=== PATIENT | female | born 1980 | race African-American/Black ===

== ENCOUNTER 2016-10-15 10:15 | Observation (INO) | payer MEDICAID ==
--- NOTE | 2016-10-15 10:32 | ER Document Report ---
ED Medical Screen (RME) - General Stated Complaint: PAINFUL KNOT ON RIGHT NIPPLE Time seen by provider: 10:30 Mode of Arrival: Ambulatory Information source: Patient Notes: 36-year-old female complaining of a painful swelling in the right area left. Last week she could squeeze some pus out of her nipple and now she can't get any out and it's larger and more painful. No history of breast cancer or MRSA I have greeted and performed a rapid initial assessment of this patient. A comprehensive ED assessment, evaluation of the patient, analysis of test results , and completion of the medical decision making process will be contacted by additional ED providers. TRAVEL OUTSIDE OF THE [place] IN LAST 30 DAYS: No - Related Data Allergies/Adverse Reactions: No Known Allergies Allergy (Verified 10/15/16 10:29) Past Medical History - Past Medical History Cardiac Medical History: Pulmonary Medical History: Neurological Medical History: GI Medical History: Musculoskeltal Medical History: Infectious Medical History: Past Surgical History: Reports: Hx Section Physical Exam - Vital signs Vitals: Temp Pulse Resp BP Pulse Ox 99.0 F 71 20 141/83 H 100 10/15/16 10:20 10/15/16 10:20 10/15/16 10:20 10/15/16 10:20 10/15/16 10:20 Course - Vital Signs Vital signs: Temp Pulse Resp BP Pulse Ox 99.0 F 71 20 141/83 H 100 10/15/16 10:20 10/15/16 10:20 10/15/16 10:20 10/15/16 10:20 10/15/16 10:20
[2016-10-15] MEDS ORDERED: AMPICILLIN SOD/SULBACTAM 3 GM VIAL IV ONE (11:20)
[2016-10-15] MEDS ORDERED: NORMAL SALINE 1000 ML 1,000 ML IV ONE ×2 (11:21)
--- NOTE | 2016-10-15 11:30 | ER Document Report ---
ED Breast Problem - General Chief Complaint: Breast Problem Stated Complaint: PAINFUL KNOT ON RIGHT NIPPLE Time seen by provider: 11:00 Mode of Arrival: Ambulatory Notes: 36-year-old female presents to ED for complaint of abscess to right wrist including under the nipple. She states it started last week it had some pus and then a gotten larger and larger and larger and more painful. Has no history of breast cancer or MRSA. TRAVEL OUTSIDE OF THE [place] IN LAST 30 DAYS: No - HPI Patient complains to provider of: Redness, Swelling, Tenderness Onset: Last week Onset/Duration: Gradual Quality of pain: Sharp, Throbbing Severity: Severe Pain Level: 5 Associated Symptoms: Other - Right breast large abscess Similar symptoms previously: Yes - not to the breast and she's always been able to open and before Recently seen / treated by doctor: No - Related Data Allergies/Adverse Reactions: No Known Allergies Allergy (Verified 10/15/16 10:29) Home Medications: Current Home Medications Triamterene/Hydrochlorothiazid [Triamterene-Hctz 37.5-25 mg Tb] 1 each PO QAM [History] Past Medical History - General Information source: Patient - Social History Smoking Status: Never Smoker Cigarette use (# per day): No Chew tobacco use (# tins/day): No Smoking Education Provided: No Frequency of alcohol use: None Drug Abuse: None Occupation: none Lives with: Alone Family History: Arthritis, DM, Hypertension, Other - CHF Patient has suicidal ideation: No Patient has homicidal ideation: No - Past Medical History Cardiac Medical History: Reports: None Pulmonary Medical History: Reports: None EENT Medical History: Reports: None Neurological Medical History: Reports: None Endocrine Medical History: Reports: None Renal/ Medical History: Reports: None Malignancy Medical History: Reports: None GI Medical History: Reports: None Musculoskeltal Medical History: Reports None Skin Medical History: Reports Hx Cellulitis Psychiatric Medical History: Reports: None Traumatic Medical History: Reports: None Infectious Medical History: Reports: None Past Surgical History: Reports: Hx Section, Hx Oral Surgery - [place] teeth Review of Systems - Review of Systems Constitutional: No symptoms reported EENT: No symptoms reported Cardiovascular: No symptoms reported Respiratory: No symptoms reported Gastrointestinal: No symptoms reported Genitourinary: No symptoms reported Female Genitourinary: No symptoms reported Musculoskeletal: No symptoms reported Skin: Other - Large abscess to right breast Hematologic/Lymphatic: No symptoms reported Neurological/Psychological: No symptoms reported Physical Exam - Vital signs Vitals: Temp Pulse Resp BP Pulse Ox 99.0 F 71 20 141/83 H 100 10/15/16 10:20 10/15/16 10:20 10/15/16 10:20 10/15/16 10:20 10/15/16 10:20 Interpretation: Normal - General General appearance: Appears well, Alert - HEENT Head: Normocephalic, Atraumatic Eyes: Normal Pupils: PERRL - Respiratory Respiratory status: No respiratory distress Chest status: Tender - Large abscess right breast Breath sounds: Normal Chest palpation: Normal - Cardiovascular Rhythm: Regular Heart sounds: Normal auscultation Murmur: No - Abdominal Inspection: Normal Distension: No distension Bowel sounds: Normal Tenderness: Nontender Organomegaly: No organomegaly - Back Back: Normal, Nontender - Extremities General upper extremity: Normal inspection, Nontender, Normal color, Normal ROM , Normal temperature General lower extremity: Normal inspection, Nontender, Normal color, Normal ROM , Normal temperature, Normal weight bearing. No: Ryan's sign - Neurological Neuro grossly intact: Yes Cognition: Normal Orientation: AAOx4 Cynthia Coma Scale Eye Opening: Spontaneous Cynthia Coma Scale Verbal: Oriented Cynthia Coma Scale Motor: Obeys Commands [place] Coma Scale Total: 15 Speech: Normal Motor strength normal: LUE, RUE, LLE, RLE Sensory: Normal - Psychological Associated symptoms: Normal affect, Normal mood - Skin Skin Temperature: Warm Skin Moisture: Dry Skin Color: Normal Skin irregularity: Abscess Location of irregularity: Other - Right breast Irregularity with: Swelling, Tenderness, Warmth Course - Re-evaluation Re-evalutation: 10/15/16 11:[address] Sagastume for the breast abscess he stated that just this patient needs to go to surgery for this abscess. Consulted Dr. David Jeronimo came to the emergency room and saw the abscess stated just she would take her to surgery will medicate the patient observation for the breast abscess. 10/15/16 11:43 - Vital Signs Vital signs: Temp Pulse Resp BP Pulse Ox 99.0 F 71 20 141/83 H 100 10/15/16 10:20 10/15/16 10:20 10/15/16 10:20 10/15/16 10:20 10/15/16 10:20 - Laboratory Result Diagrams: 10/15/16 11:15 10/15/16 11:15 - Consults David Spivey Time consulted: 11:15 Reason for consultation: 10/15/16 11:42 breast abscess Consulted provider: will come to ER Discharge - Discharge Clinical Impression: Abscess of right breast Disposition: ADMITTED OBSERVATION Admitting Provider: Surgicalist Sy Hernandez
[2016-10-15 11:35] LABS: ABSOLUTE EOSINOPHILS # (AUTO) 0.1 10^3/uL (0.0-0.6); ABSOLUTE MONOCYTES (AUTO) 0.7 10^3/uL (0.1-1.4); ABSOLUTE NEUT (AUTO) 6.6 10^3/uL (1.7-8.2); BASOPHILS % (AUTO) 0.5 % (0-2); EOSINOPHILS % (AUTO) 1.3 % (0-6); HEMATOCRIT 34.3 % (36.0-47.0); HEMOGLOBIN 11.7 g/dL (12.0-15.5); HGB HCT DIFFERENCE 0.8; LYMPHOCYTES % (AUTO) 21.4 % (13-45); MEAN CORPUSCULAR HEMOGLOBIN 29.3 pg (27.0-33.4); MEAN CORPUSCULAR VOLUME 86 fl (80-97); RED BLOOD COUNT 3.98 10^6/uL (3.72-5.28); RED CELL DISTRIBUTION WIDTH 13.3 % (11.5-14.0); SEGMENTED NEUTROPHILS % (AUTO) 69.8 % (42-78); WHITE BLOOD COUNT 9.5 10^3/uL (4.0-10.5)
[2016-10-15 11:48] LABS: ALANINE AMINOTRANSFERASE 19 U/L (9-52); ALBUMIN 4.3 g/dL (3.5-5.0); ALKALINE PHOSPHATASE 97 U/L (38-126); ANION GAP 13 (5-19); ASPARTATE AMINO TRANSFERASE 12 U/L (14-36); BILIRUBIN,TOTAL 0.7 mg/dL (0.2-1.3); BLOOD UREA NITROGEN 9 mg/dL (7-20); CALCIUM 9.1 mg/dL (8.4-10.2); CARBON DIOXIDE 23 mmol/L (22-30); CHLORIDE 104 mmol/L (98-107); CREATININE RESULT 0.82 mg/dL (0.52-1.25); GLUCOSE 84 mg/dL (75-110); POTASSIUM 3.9 mmol/L (3.6-5.0); SODIUM 140.4 mmol/L (137-145)
--- NOTE | 2016-10-15 13:03 | HISTORY AND PHYSICAL E ---
History and Physical NAME: BRUNA ROLDAN : 1980 AGE: 36Y ADMITTED: 10/15/2016 ROOM: ED35 HISTORY OF PRESENT ILLNESS: Patient is being admitted for evaluation and management of her right breast cellulitis and also for management of abscess. Patient started having this swelling for the last several days, including in size, and got very swollen and painful. She came to the emergency room. She is a 36-year-old and never had a mammogram. No family history of breast cancer. No history of breast abscess before. PAST MEDICAL HISTORY: History of hypertension. PAST SURGICAL HISTORY: No prior surgeries in the past. FAMILY HISTORY: No history of breast cancer. PHYSICAL EXAMINATION: GENERAL: She is awake, alert, and oriented. NECK: No lymphadenopathy. No thyromegaly. RESPIRATORY: Both lungs are clear. CARDIOVASCULAR: Both heart sounds are regular. No murmurs or gallops. ABDOMEN: Soft and nontender. BREAST: Examination of the right breast, there is about 6 cm in area of induration with fluctuance, cellulitis changes, large abscess. No obvious lymphadenopathy. EXTREMITIES: Warm and well perfused. IMPRESSION: Overall right breast abscess, uncertain etiology for cellulitis. PLAN: N.P.O. IV antibiotics and plan for incision and drainage. We will also send for biopsies to make sure there is not an inflammatory carcinoma of the breast. unlikely but still we sent biopsies and then she will follow up in the Surgery Clinic for further followup. DICTATING PHYSICIAN: LUISANA MOULTON M.D. [id number] PHY#: [id number] ID: [id number] JOB#: [id number] ACCT: [id number] cc:NIRMAL LYONS M.D. > [facility]
[2016-10-15] MEDS ORDERED: PROPOFOL INJ 200 MG/20 ML VIAL IV ONE (13:35)
[2016-10-15] MEDS ORDERED: MIDAZOLAM 2 MG/2 ML INJ ONE (13:35)
[2016-10-15] MEDS ORDERED: FENTANYL CITRATE INJ/PF 100 MCG/2 ML AMPUL ONE (13:35)
[2016-10-15] MEDS ORDERED: LIDOCAINE 1% INJ-PF (10 MG/ML) 30 ML SDV ONE (13:56)
[2016-10-15] MEDS ORDERED: PROMETHAZINE HCL INJ 25 MG/1 ML VIAL IV PRN (14:04)
[2016-10-15] MEDS ORDERED: KETOROLAC TROMETHAMINE INJ/PF 30 MG/1 ML SDV ONE (14:43)
[2016-10-15] MEDS ORDERED: ACETAMINOPHEN 100 ML IV ONE (14:43)
[2016-10-15] MEDS ORDERED: METOCLOPRAMIDE HCL INJ/PF 10 MG/2 ML SDV ONE (14:54)
[2016-10-15] MEDS ORDERED: ONDANSETRON HCL INJ/PF 4 MG/2 ML SDV ONE (14:54)
[2016-10-15] MEDS: FENTANYL CITRATE INJ/PF 100 MCG/2 ML AMPUL ONE ×2 (15:05→15:07)
[2016-10-15] MEDS: FENTANYL CITRATE INJ/PF 100 MCG/2 ML AMPUL IV PRN ×21 (16:12→16:55)
[2016-10-15] MEDS: OXYCODONE-ACETAMINOPHEN 5-325 MG TABLET PO PRN ×2 (16:13→23:09)
[2016-10-15] MEDS: MEPERIDINE HCL/PF INJ 25 MG/1 ML DISP.SYRIN IV PRN ×6 (16:16→16:55)
[2016-10-15] MEDS: DIPHENHYDRAMINE HCL 50 MG/ML VIAL IV PRN ×9 (16:16→17:00)
[2016-10-15] MEDS: MORPHINE SULFATE 10 MG/ML INJ IV PRN ×5 (16:17→16:56)
[2016-10-15] MEDS: PROMETHAZINE HCL INJ 25 MG/1 ML VIAL IV PRN ×3 (16:18→16:52)
--- NOTE | 2016-10-15 16:51 | OPERATIVE REPORT E ---
Operative Report NAME: BRUNA ROLDAN : 1980 AGE: 36Y DATE OF SURGERY: 10/15/2016 ROOM: 533 PREOPERATIVE DIAGNOSIS: Abscess of the right breast, uncertain etiology. POSTOPERATIVE DIAGNOSIS: Abscess of the right breast, uncertain etiology. Apparently, she had one abscess before. She is a 36-year-old with no history of breast cancer, no family history of breast cancer but indurated area and abscess. OPERATION: 1. Incision and drainage of breast abscess. 2. Excisional biopsy of the breast inflammatory area to rule out any malignancy. SURGEON: LUISANA MOULTON M.D. 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 ANESTHESIA: General. HISTORY AND INDICATIONS: As described. PROCEDURE: The patient was placed under the monitored anesthesia care. 1% lidocaine given after cleaning and draping the right breast area. Most of the abscess was located in the periareolar area. In the upper part of the periareolar area a 2 cm incision was made. About 20 mL of pus was drained out and sent for culture. After the abscess cavity was irrigated, underlying indurated breast tissue was excised for biopsy. Excisional biopsy performed. Complete thorough hemostasis. Wound was irrigated. Dry sterile dressings were applied wet-to-dry. Patient in stable condition. She will follow up in the Surgery Clinic for biopsy results and further management. We will admit her overnight for pain management and IV antibiotics. DICTATING PHYSICIAN: LUISANA MOULTON M.D. [id number] PHY#: [id number] ID: [id number] JOB#: [id number] ACCT: [id number] cc:LUISANA MOULTON M.D. > [facility]
[2016-10-15] MEDS: AMPICILLIN SODIUM/SULBACTAM NA 3 GM in NORMAL SALINE 100 ML IV SCH (17:16)
[2016-10-16] MEDS: AMPICILLIN SODIUM/SULBACTAM NA 3 GM in NORMAL SALINE 100 ML IV SCH ×3 (00:31→11:49)
[2016-10-16] MEDS: OXYCODONE-ACETAMINOPHEN 5-325 MG TABLET PO PRN ×2 (05:17→10:57)
--- NOTE | 2016-10-16 06:53 | DISCHARGE SUMMARY E ---
Discharge Summary NAME: BRUNA ROLDAN : 1980 AGE: 36Y ADMITTED: 10/15/2016 DISCHARGED: 10/16/2016 ADMITTING DIAGNOSES: 1. Right breast mastitis. 2. Right breast abscess, possible mass. OPERATION PROCEDURE: Incision and drainage of the right breast abscess and also biopsy of the right breast area to make sure there is no carcinoma. Today, the patient is feeling well, afebrile, tolerating diet. Most of the edema, inflammation resolving and being discharged home. Wound care instructions were given. Prescriptions given for the Augmentin and followup in the Surgical Clinic in two weeks along with Pathology followup. At the time of discharge, the patient is doing well. DICTATING PHYSICIAN: LUISANA MOULTON M.D. [id number] PHY#: [id number] ID: [id number] JOB#: [id number] ACCT: [id number] cc:Jaspreet VIVAR M.D. JACQUELINE AUGSBURGER, PA > [facility]
[2016-10-16 08:08] VITALS: BP 127/82
== END 2016-10-16 12:11 | disposition home or self-care (01) ==
LOC: ER 10:15 → EH 11:57 → 5 15:49
PROVIDERS: ADMIT Colon & Rectal Surgery; ATTEND Colon & Rectal Surgery
PROC: 0HBT0ZX Excision of Right Breast, Open Approach, Diagnostic (ICD-10-PCS; 2016-10-15)
PROC: 3E033GC Introduction of Other Therapeutic Substance into Peripheral Vein, Percutaneous Approach (ICD-10-PCS; 2016-10-15)
PROC: 3E0337Z Introduction of Electrolytic and Water Balance Substance into Peripheral Vein, Percutaneous Approach (ICD-10-PCS; 2016-10-15)
PROC: 0H9T0ZZ Drainage of Right Breast, Open Approach (ICD-10-PCS; principal; 2016-10-15 13:00)
DX: N61.1 Abscess of the breast and nipple (principal); I10 Essential (primary) hypertension
CPT/HCPCS: 99284; 96361; 96365; 36415; 87070; 87205; 84703; 85025; 87075; 80053; 88342 ×2; 88304 ×2; 10060; 19101; G0378 ×3; J2250; J3010; J0295 ×2; J3490; J1885; J2765; J2405; J7030; J2704; J0131; 400

== ENCOUNTER → 2017-07-10 | Outpatient (CLI) | payer MEDICAID ==
--- NOTE | 2017-07-24 17:15 | WOMENS IMAGING REPORT ---
EXAM DESCRIPTION: BILAT DIAGNOSTIC MAMMO W/CAD; U/S BREAST UNILATERAL, COMPL COMPLETED DATE/TIME: 07/10/2017 10:29 am; 07/10/2017 10:59 am REASON FOR STUDY: LUMP; N63; LUMP RT BREAST N63 N63.0 UNSPECIFIED LUMP IN UNSPECIFIED BREAST COMPARISON: None. TECHNIQUE: Standard craniocaudal and mediolateral oblique views of each breast recorded using digita l acquisition. Additional bilateral 90 mediolateral mammograms. Right breast ultrasound was also performed. LIMITATIONS: None. FINDINGS: RIGHT BREAST MASSES: Patient's right nipple has been surgically biopsy. A soft tissue nodule at the right nipple is present extending into the area ala, measuring about 4 cm x 1.6 cm in size. In the right breast lower outer quadrant about the 7 to 8 o'clock position, a 2.2 x 1.3 cm mammograph ic nodule is present. In the right breast medially about 10 cm from the nipple at the 1 to 2 o'clock position, a 2.3 by 1.5 cm mammographic nodule is present. CALCIFICATIONS: No new or suspicious calcifications. ARCHITECTURAL DISTORTION: None. DEVELOPING DENSITY: None. ASYMMETRY: None noted. OTHER: No other significant findings. LEFT BREAST MASSES: In the left breast 12 o'clock position, 15 cm from the nipple a 1 cm mammographic nodule is p resent. In the left breast lower inner quadrant 12 cm from the nipple, a 1 cm mammographic nodule is present. CALCIFICATIONS: No new or suspicious calcifications. ARCHITECTURAL DISTORTION: None. DEVELOPING DENSITY: None. ASYMMETRY: None noted. OTHER: No other significant finding. Read with the assistance of CAD: .[facility] - R2 Cenova Version 1.3 .[facility] - R2 Cenova Version 1.3 .[facility] Imaging - R2 Cenova Version 2.4 .[facility] - R2 Cenova Version 2.4 .[facility] - R2 Environmental [employer] Worker Version 9.2 Right breast ultrasound: Patient indicates palpable abnormalities in the right breast as well as tenderness in the right axill a. In the retroareolar region right breast, there is a hypoechoic nodule extending into the areola, toge ther these findings measure about 4.2 x 1.6 cm in size. Correlation is recommended with the biopsy p athology report. If no pathology report is available, then biopsy of this retroareolar mass is recom mended. Elsewhere in the right breast, low-density well-circumscribed hypoechoic solid nodules with character istic appearance of fibroadenoma are present, at the 1 to 2 o'clock position 2.3 x 1.5 cm in size. I n the right lower outer quadrant, a 2.2 x 1.3 cm fibroadenoma is present. Ultrasound of the right axilla demonstrates several small benign-appearing lymph nodes without worris ome features, the largest of these measures about 3 cm by 0.7 cm in size IMPRESSION: Abnormal right nipple areolar complex with surgical scar evident. Correlation with the pathology report from previous surgical biopsy is recommended. If this not available, rebiopsy of th e retroareolar region right breast is recommended. Right breast benign fibroadenomas in the 7 to 8 o'clock position and 1 to 2 o'clock position. Mammographic nodules in the left breast 12 o'clock and 6 o'clock position for which additional ultras ound is required BREAST DENSITY: a. The breasts are almost entirely fatty. BIRAD: 0 Incomplete: Needs additional imaging evaluation with left breast ultrasound. Abnormal right nipple areolar complex was surgical scar evident. Correlation with the pathology repo rt from previous surgical biopsy is recommended. If this is not available, rebiopsy of the right ret roareolar region is recommended under ultrasound guidance. RECOMMENDATION: RECOMMENDED FOLLOW UP: Left breast ultrasound Correlation with right surgical biopsy path report for retroareolar region. If this is not available , ultrasound-guided core biopsy of the right breast retroareolar region is recommended SPECIFIC INTERVENTION/IMAGING/CONSULTATION RECOMMENDED:As above COMMUNICATION:Patient notified by letter COMMENT: The patient has been notified of the results by letter per SA requirements. Additional no tification policies are in place for contacting patient with suspicious or incomplete findings. Quality ID #225: The [employer] recommends an annual screening mammogram for women aged 40 years or over. This facility utilizes a reminder system to ensure that all patients receive reminder letters, and/or direct phone calls for appointments. This includes reminders for routine scr eening mammograms, diagnostic mammograms, or other Breast Imaging Interventions when appropriate. Th is patient will be placed in the appropriate reminder system. The [employer] (ACR) has developed recommendations for screening MRI of the breast s in certain patient populations, to be used in conjunction with mammography. Breast MRI surveillanc e may be appropriate for women with more than 20% lifetime risk of developing breast cancer as deter mined by genetic testing, significant family history of the disease, or history of mantle radiation f or Hodgkins Disease. ACR Practice Guidelines 2008. TECHNICAL DOCUMENTATION: FINDING NUMBER: (1) ASSESSMENT: (1) JOB ID: [id number] [employer]- All Rights Reserved
--- NOTE | 2017-07-24 17:15 | WOMENS IMAGING REPORT ---
EXAM DESCRIPTION: BILAT DIAGNOSTIC MAMMO W/CAD; U/S BREAST UNILATERAL, COMPL COMPLETED DATE/TIME: 07/10/2017 10:29 am; 07/10/2017 10:59 am REASON FOR STUDY: LUMP; N63; LUMP RT BREAST N63 N63.0 UNSPECIFIED LUMP IN UNSPECIFIED BREAST COMPARISON: None. TECHNIQUE: Standard craniocaudal and mediolateral oblique views of each breast recorded using digita l acquisition. Additional bilateral 90 mediolateral mammograms. Right breast ultrasound was also performed. LIMITATIONS: None. FINDINGS: RIGHT BREAST MASSES: Patient's right nipple has been surgically biopsy. A soft tissue nodule at the right nipple is present extending into the area ala, measuring about 4 cm x 1.6 cm in size. In the right breast lower outer quadrant about the 7 to 8 o'clock position, a 2.2 x 1.3 cm mammograph ic nodule is present. In the right breast medially about 10 cm from the nipple at the 1 to 2 o'clock position, a 2.3 by 1.5 cm mammographic nodule is present. CALCIFICATIONS: No new or suspicious calcifications. ARCHITECTURAL DISTORTION: None. DEVELOPING DENSITY: None. ASYMMETRY: None noted. OTHER: No other significant findings. LEFT BREAST MASSES: In the left breast 12 o'clock position, 15 cm from the nipple a 1 cm mammographic nodule is p resent. In the left breast lower inner quadrant 12 cm from the nipple, a 1 cm mammographic nodule is present. CALCIFICATIONS: No new or suspicious calcifications. ARCHITECTURAL DISTORTION: None. DEVELOPING DENSITY: None. ASYMMETRY: None noted. OTHER: No other significant finding. Read with the assistance of CAD: .[facility] - R2 Cenova Version 1.3 .[facility] Imaging - R2 Cenova Version 1.3 .[facility] Imaging - R2 Cenova Version 2.4 .[facility] - R2 Cenova Version 2.4 .[facility] - R2 Parliamentary [employer] Version 9.2 Right breast ultrasound: Patient indicates palpable abnormalities in the right breast as well as tenderness in the right axill a. In the retroareolar region right breast, there is a hypoechoic nodule extending into the areola, toge ther these findings measure about 4.2 x 1.6 cm in size. Correlation is recommended with the biopsy p athology report. If no pathology report is available, then biopsy of this retroareolar mass is recom mended. Elsewhere in the right breast, low-density well-circumscribed hypoechoic solid nodules with character istic appearance of fibroadenoma are present, at the 1 to 2 o'clock position 2.3 x 1.5 cm in size. I n the right lower outer quadrant, a 2.2 x 1.3 cm fibroadenoma is present. Ultrasound of the right axilla demonstrates several small benign-appearing lymph nodes without worris ome features, the largest of these measures about 3 cm by 0.7 cm in size IMPRESSION: Abnormal right nipple areolar complex with surgical scar evident. Correlation with the pathology report from previous surgical biopsy is recommended. If this not available, rebiopsy of th e retroareolar region right breast is recommended. Right breast benign fibroadenomas in the 7 to 8 o'clock position and 1 to 2 o'clock position. Mammographic nodules in the left breast 12 o'clock and 6 o'clock position for which additional ultras ound is required BREAST DENSITY: a. The breasts are almost entirely fatty. BIRAD: 0 Incomplete: Needs additional imaging evaluation with left breast ultrasound. Abnormal right nipple areolar complex was surgical scar evident. Correlation with the pathology repo rt from previous surgical biopsy is recommended. If this is not available, rebiopsy of the right ret roareolar region is recommended under ultrasound guidance. RECOMMENDATION: RECOMMENDED FOLLOW UP: Left breast ultrasound Correlation with right surgical biopsy path report for retroareolar region. If this is not available , ultrasound-guided core biopsy of the right breast retroareolar region is recommended SPECIFIC INTERVENTION/IMAGING/CONSULTATION RECOMMENDED:As above COMMUNICATION:Patient notified by letter COMMENT: The patient has been notified of the results by letter per SA requirements. Additional no tification policies are in place for contacting patient with suspicious or incomplete findings. Quality ID #[id number]: The [employer] recommends an annual screening mammogram for women aged 40 years or over. This facility utilizes a reminder system to ensure that all patients receive reminder letters, and/or direct phone calls for appointments. This includes reminders for routine scr eening mammograms, diagnostic mammograms, or other Breast Imaging Interventions when appropriate. Th is patient will be placed in the appropriate reminder system. The [employer] (ACR) has developed recommendations for screening MRI of the breast s in certain patient populations, to be used in conjunction with mammography. Breast MRI surveillanc e may be appropriate for women with more than 20% lifetime risk of developing breast cancer as deter mined by genetic testing, significant family history of the disease, or history of mantle radiation f or Hodgkins Disease. ACR Practice Guidelines 2008. TECHNICAL DOCUMENTATION: FINDING NUMBER: (1) ASSESSMENT: (1) JOB ID: [id number] [employer]- All Rights Reserved
== END ==
LOC: WI 10:07
PROVIDERS: ATTEND Advanced Practice Midwife
DX: N63.13 Unspecified lump in the right breast, lower outer quadrant (principal); N61.1 Abscess of the breast and nipple
CPT/HCPCS: 76641; G0204; 77066

== ENCOUNTER → 2017-08-06 | Outpatient (CLI) | payer MEDICAID ==
--- NOTE | 2017-08-06 10:36 | WOMENS IMAGING REPORT ---
EXAM DESCRIPTION: U/S BREAST UNILATERAL, COMPL COMPLETED DATE/TIME: 08/06/2017 9:37 am REASON FOR STUDY: UNSPECIFIED LUMP IN LEFT BREAST N63.20 UNSPECIFIED LUMP IN THE LEFT BREAST, UNSPE CIFIED QUAD COMPARISON: None. TECHNIQUE: Real-time and static grayscale imaging performed of the left breast targeted to the area of clinical/mammographic concern. Selected color Doppler images recorded. LIMITATIONS: None. FINDINGS: MASS: There are 2 similar-appearing lesions, the largest in 7 o'clock position. Both lesi ons are hypoechoic, well-circumscribed with echogenic capsule, the largest 1.1 x 1.8 x 0.7 cm. OTHER: No other significant finding. IMPRESSION: Probable benign fibroadenomas. BIRAD: 3 Probably benign finding. Initial short-interval follow-up suggested. RECOMMENDATION: RECOMMENDED FOLLOW-UP: Six-month ultrasound follow-up. COMMENT: The [employer] (ACR) has developed recommendations for screening MRI of the breasts in certain patient populations, to be used in conjunction with mammography. Breast MRI s urveillance may be appropriate for women with more than 20% lifetime risk of developing breast cancer as determined by genetic testing, significant family history of the disease, or history of mantle r adiation for Hodgkins Disease. ACR Practice Guidelines 2008. TECHNICAL DOCUMENTATION: JOB ID: [id number] [employer]- All Rights Reserved
== END ==
LOC: WI 09:01
PROVIDERS: ATTEND Student in an Organized Health Care Education/Training Program
DX: N63.24 Unspecified lump in the left breast, lower inner quadrant (principal)
CPT/HCPCS: 76641

== ENCOUNTER 2018-05-10 16:44 | Emergency (ER) | payer MEDICAID ==
--- NOTE | 2018-05-10 19:08 | ER Document Report ---
ED General - General Chief Complaint: Back Pain Stated Complaint: BODY ACHES Time Seen by Provider: 05/10/18 18:24 Mode of Arrival: Ambulatory Information source: Patient Notes: 38-year-old female presents to ED for complaint of low back pain that radiates down both legs. He denies any loss of control of bowel bladder or any loss of sensation. She states she has not had any injuries that she knows of. She states she has not taken anything for her symptoms. She also states she has pain to her head both legs her neck and has had chills but no fever. She states no one else in the house is sick. TRAVEL OUTSIDE OF THE [place] IN LAST 30 DAYS: No - HPI Onset: Yesterday Onset/Duration: Gradual Quality of pain: Achy Severity: Moderate Pain Level: 3 Associated symptoms: Body/muscle aches, Chills, Headache, Rhinnorhea, Sinus pain /drainage Exacerbated by: Denies Relieved by: Denies Similar symptoms previously: Yes Recently seen / treated by doctor: No - Related Data Allergies/Adverse Reactions: No Known Allergies Allergy (Verified 10/15/16 10:29) Past Medical History - General Information source: Patient - Social History Smoking Status: Former Smoker Cigarette use (# per day): No Chew tobacco use (# tins/day): No Smoking Education Provided: No Frequency of alcohol use: Rare Drug Abuse: None Occupation: [employer] Lives with: Family Family History: Arthritis, DM, Hypertension, Other - CHF Patient has suicidal ideation: No Patient has homicidal ideation: No - Past Medical History Cardiac Medical History: Pulmonary Medical History: Reports: None EENT Medical History: Reports: None Neurological Medical History: Reports: None Endocrine Medical History: Reports: None Renal/ Medical History: Reports: None Malignancy Medical History: Reports: None GI Medical History: Reports: None Musculoskeletal Medical History: Reports None Skin Medical History: Reports Hx Cellulitis, Reports Hx MRSA Psychiatric Medical History: Reports: None Traumatic Medical History: Reports: None Infectious Medical History: Reports: Hx MRSA Past Surgical History: Reports: Hx Section, Hx Oral Surgery - [place] teeth - Immunizations Hx Diphtheria, Pertussis, Tetanus Vaccination: Yes Review of Systems - Review of Systems Constitutional: Chills, Recent illness EENT: Nose discharge, Sinus pressure, Sinus discharge Respiratory: Cough Gastrointestinal: No symptoms reported Genitourinary: No symptoms reported Female Genitourinary: No symptoms reported Musculoskeletal: Muscle pain, Muscle stiffness Skin: No symptoms reported Hematologic/Lymphatic: No symptoms reported Neurological/Psychological: No symptoms reported -: Yes All other systems reviewed and negative Physical Exam - Vital signs Vitals: Temp Pulse Resp BP Pulse Ox 98.5 F 65 16 183/98 H 100 05/10/18 16:58 05/10/18 16:58 05/10/18 16:58 05/10/18 16:58 05/10/18 16:58 Interpretation: Normal - General General appearance: Appears well, Alert - HEENT Head: Normocephalic, Atraumatic Eyes: Normal Pupils: PERRL Ears: Normal External canal: Normal Tympanic membrane: Normal Sinus: Normal Nasal: Swelling, Clear rhinorrhea Mouth/Lips: Normal Mucous membranes: Normal Pharynx: Post nasal drainage Neck: Normal - Respiratory Respiratory status: No respiratory distress Chest status: Nontender Breath sounds: Nonproductive cough Chest palpation: Normal - Cardiovascular Rhythm: Regular Heart sounds: Normal auscultation Murmur: No - Abdominal Inspection: Normal Distension: No distension Bowel sounds: Normal Tenderness: Nontender Organomegaly: No organomegaly - Back Back: Normal, Nontender - Extremities General upper extremity: Normal inspection, Nontender, Normal color, Normal ROM , Normal temperature General lower extremity: Normal inspection, Nontender, Normal color, Normal ROM , Normal temperature, Normal weight bearing. No: Ryan's sign - Neurological Neuro grossly intact: Yes Cognition: Normal Orientation: AAOx4 Cynthia Coma Scale Eye Opening: Spontaneous Patterson Coma Scale Verbal: Oriented Cynthia Coma Scale Motor: Obeys Commands Cynthia Coma Scale Total: 15 Speech: Normal Motor strength normal: LUE, RUE, LLE, RLE Sensory: Normal - Psychological Associated symptoms: Normal affect, Normal mood - Skin Skin Temperature: Warm Skin Moisture: Dry Skin Color: Normal Course - Re-evaluation Re-evalutation: 05/10/18 21:54 Patient has signs and symptoms of upper respiratory infection. She was instructed on treatment for an upper respiratory infection. She also has a history of high blood pressure and has not taken her medications in about a year. I did call [employer] and found that the medication she was taken before. She was written 10 day supply of blood pressure medicine and told to follow- up with her primary doctor. She is on Medicaid and has a primary doctor she just needs to follow-up. - Vital Signs Vital signs: Temp Pulse Resp BP Pulse Ox 99.2 F 68 16 146/77 H 100 05/10/18 19:34 05/10/18 19:34 05/10/18 16:58 05/10/18 19:34 05/10/18 19:34 Discharge - Discharge Clinical Impression: URI (upper respiratory infection) Qualifiers: URI type: unspecified URI Qualified Code(s): J06.9 - Acute upper respiratory infection, unspecified HTN (hypertension) Qualifiers: Hypertension type: unspecified Qualified Code(s): I10 - Essential (primary) hypertension Condition: Stable Disposition: HOME, SELF-CARE Additional Instructions: UPPER RESPIRATORY ILLNESS: You have a viral infection of the respiratory passages -- a "cold." This common infection causes nasal congestion, drainage, and often sore throat and cough. It is highly contagious. The disease usually lasts about 10 to 14 days. There is no "cure" for the viral infection -- it must run its course. If there is a complication, such as bacterial infection in the nose, sinuses, middle ear, or bronchial tubes, antibiotics may be required. The antibiotics won't affect the virus. Drink plenty of fluids. A humidifier may help. An expectorant medication or decongestant may make you more comfortable. Use acetaminophen or ibuprofen for fever or aches. See the doctor if fever persists over two days, if there is any significant worsening of your symptoms, or if you simply fail to improve as expected. High Blood Pressure When your blood pressure was taken today it was elevated. Today's reading was . Pre-hypertension/Hypertension: The patient has been informed that they may have pre-hypertension or Hypertension based on a blood pressure reading in the emergency department. I recommend that the patient call the primary care provider listed on their discharge instructions or a physician of their choice this wee to arrange follow up for further evaluation of possible pre- hypertension or Hypertension. Sometimes, stress or illness causes a temporary elevation of your blood pressure. We suggest that you get your blood pressure measured three more times during the next few days to see if this is more than a temporary abnormality. If your blood pressure is greater than 150/90 on each occasion, you must have treatment. Some simple things you can do to help are: If you have blood pressure medicine but aren't using it regularly, start taking it again. Get some aerobic exercise for at least 20 minutes on a daily basis. (See your doctor before beginning a new exercise program.) Eat a low-fat diet. Lose excess weight. Avoid salty foods and avoid adding salt to any of the foods you eat. Avoid diet pills, decongestants, "energizing" herbs, and other medicines that elevate blood pressure. If left untreated, hypertension greatly enhances your risk for developing heart disease and strokes. Please don't ignore this problem. COUGH-SUPPRESSANT & EXPECTORANT MEDICATION: You are to use a cough medication as needed for relief of symptoms. This medicine is a combination of an expectorant (to make the mucous thinner and more easily "coughed up") and a cough suppressant (to reduce the frequency of coughing). The cough-suppressant medicine is related to narcotics. You may experience mild nausea and sleepiness. Some patients who are very sensitive to narcotics may have stomach pain from this medicine. Taking the medicine with food reduces these side effects. Do not drive or work with machinery until you know how this medicine affects you. The expectorant should have no side effects. Iodine-containing expectorants (such as organidin) should not be taken by persons with active thyroid disease unless approved by your doctor. Call the doctor if you develop shortness of breath, hives, rash, itching, lightheadedness, or severe nausea and vomiting. USE OF ACETAMINOPHEN (Tylenol): Acetaminophen may be taken for pain relief or fever control. It's much safer than aspirin, offering a wider range of "safe" dosages. It is safe during . Some brand names are Tylenol, Panadol, Datril, Anacin 3, Tempra, and Liquiprin. Acetaminophen can be repeated every four hours. The following are maximum recommended dosages: >89 pounds or adults 650 mg to 900 mg Acetaminophen can be repeated every four hours. Maximum dose not to exceed 4000 mg a day. FOLLOW-UP CARE: If you have been referred to a physician for follow-up care, call the physician s office for an appointment as you were instructed or within the next two days. If you experience worsening or a significant change in your symptoms, notify the physician immediately or return to the Emergency Department at any time for re-evaluation. Call your primary care doctor on Sunday and follow-up promptly for your elevated blood pressure. If you develop any high fevers cough congestion that is unresolved with Tylenol and Motrin please return to the ED or follow-up with your primary care doctor. Prescriptions: Triamterene/Hydrochlorothiazid [Triamterene-Hctz 37.5-25 mg Tb] 1 each PO DAILY #10 tablet Forms: Elevated Blood Pressure Referrals: MODE PLASCENCIA MD [Primary Care Provider] - Follow up as needed
[2018-05-10 19:37] VITALS: BP 146/77
== END 2018-05-10 19:37 | disposition home or self-care (01) ==
LOC: ER 16:44
DX: J06.9 Acute upper respiratory infection, unspecified (principal); I10 Essential (primary) hypertension; M54.5 Low back pain; M79.604 Pain in right leg; M79.605 Pain in left leg; M54.2 Cervicalgia; M79.1 Myalgia; R51 Headache; R68.83 Chills (without fever); J34.89 Other specified disorders of nose and nasal sinuses; Z87.891 Personal history of nicotine dependence
CPT/HCPCS: 99283

== ENCOUNTER 2019-05-04 14:35 | Inpatient (IN) | payer MEDICAID ==
--- NOTE | 2019-05-04 16:08 | ER Document Report ---
ED Medical Screen (RME) - General Chief Complaint: Abscess Stated Complaint: POSSIBLE ABSCESS Time Seen by Provider: 05/04/19 16:00 Primary Care Provider: MODE PLASCENCIA MD [Primary Care Provider] - Follow up as needed Notes: Patient is a 39-year-old female presents to the emergency department with a chief complaint of a right breast abscess. Patient states this is been present for 1 week and has continued to get larger. Patient states there is been no drainage despite pressing on the breast. Patient states she does have a history of the same in which she did require surgical intervention in the operating ro om. Patient denies fever. TRAVEL OUTSIDE OF THE [place] IN LAST 30 DAYS: No - Related Data Allergies/Adverse Reactions: No Known Allergies Allergy (Verified 05/04/19 14:36) Past Medical History - Past Medical History Cardiac Medical History: Pulmonary Medical History: Neurological Medical History: Renal/ Medical History: Denies: Hx Peritoneal Dialysis GI Medical History: Musculoskeltal Medical History: Skin Medical History: Reports Hx Cellulitis, Reports Hx MRSA Infectious Medical History: Reports: Hx MRSA Past Surgical History: Reports: Hx Section, Hx Oral Surgery - [place] teeth - Immunizations Hx Diphtheria, Pertussis, Tetanus Vaccination: Yes Physical Exam - Vital signs Vitals: Temp Pulse Resp BP Pulse Ox 98.7 F 93 16 160/91 H 100 05/04/19 14:48 05/04/19 14:48 05/04/19 14:48 05/04/19 14:48 05/04/19 14:48 - Skin Notes: Patient has a large indurated area surrounding the right areola and breast tissue. This area is firm and tender to touch. There is no drainage. Course - Re-evaluation Re-evalutation: 05/04/19 16:06 We will order basic labs and ultrasound of the right breast to rule out abscess. Patient is eating and drinking in triage. I did inform patient to remain n.p.o. for the rest of her visit as she may require possible surgical intervention after the testing has been performed. Patient verbalized u nderstanding. I have greeted and performed a rapid initial assessment of this patient. A comprehensive ED assessment and evaluation of the patient, analysis of test results and completion of the medical decision making process will be conducted by additional ED providers. - Vital Signs Vital signs: Temp Pulse Resp BP Pulse Ox 98.7 F 93 16 160/91 H 100 05/04/19 14:48 05/04/19 14:48 05/04/19 14:48 05/04/19 14:48 05/04/19 14:48 Doctor's Discharge - Discharge Referrals: MODE PLASCENCIA MD [Primary Care Provider] - Follow up as needed
[2019-05-04 16:32] LABS: ABSOLUTE EOSINOPHILS # (AUTO) 0.1 10^3/uL (0.0-0.6); ABSOLUTE LYMPHOCYTES (AUTO) 1.9 10^3/uL (0.5-4.7); ABSOLUTE MONOCYTES (AUTO) 0.3 10^3/uL (0.1-1.4); ABSOLUTE NEUT (AUTO) 3.6 10^3/uL (1.7-8.2); BASOPHILS % (AUTO) 0.5 % (0-2); HEMATOCRIT 33.1 % (36.0-47.0); HEMOGLOBIN 11.1 g/dL (12.0-15.5); LYMPHOCYTES % (AUTO) 32.5 % (13-45); MEAN CORPUSCULAR HEMOGLOBIN 28.6 pg (27.0-33.4); MEAN CORPUSCULAR HGB CONC 33.4 g/dL (32.0-36.0); MEAN CORPUSCULAR VOLUME 86 fl (80-97); MONOCYTES % (AUTO) 4.7 % (3-13); PLATELET COUNT 351 10^3/uL (150-450); RED BLOOD COUNT 3.87 10^6/uL (3.72-5.28); RED CELL DISTRIBUTION WIDTH 15.8 % (11.5-14.0); SEGMENTED NEUTROPHILS % (AUTO) 60.3 % (42-78); TOTAL CELLS COUNTED % (AUTO) 100 %
[2019-05-04 16:54] LABS: ANION GAP 8 (5-19); BLOOD UREA NITROGEN 9 mg/dL (7-20); CALCIUM 9.4 mg/dL (8.4-10.2); CARBON DIOXIDE 29 mmol/L (22-30); CHLORIDE 102 mmol/L (98-107); GLUCOSE 90 mg/dL (75-110); POTASSIUM 3.5 mmol/L (3.6-5.0)
--- NOTE | 2019-05-04 17:20 | RADIOLOGY REPORT (SQ) ---
EXAM DESCRIPTION: U/S BREAST UNILATERAL LIMITED COMPLETED DATE/TIME: 05/04/2019 5:11 pm REASON FOR STUDY: possible right breast abscess COMPARISON: None. TECHNIQUE: Static and Realtime grayscale interrogation of focal area(s) of concern in the right connor st(s) acquired. Selected color doppler/spectral images saved to PACS. LIMITATIONS: None. FINDINGS: Masses:Large hypoechoic 4.8 cm greatest dimension mass, retroareolar. No internal Doppler detectable blood flow. Architecture:No alteration of normal morphology. No skin thickening. No edema. Other: None. IMPRESSION: Large solid retroareolar mass. These either represents a large cyst or potentially an abscess. BIRAD: 2 Benign findings.. RECOMMENDATION: RECOMMENDED FOLLOW-UP: Clinical followup. COMMENT: The [employer] (A[employer]) has developed recommendations for screening MRI of the breasts in certain patient populations, to be used in conjunction with mammography. Breast MRI s urveillance may be appropriate for women with more than 20% lifetime risk of developing breast cancer as determined by genetic testing, significant family history of the disease, or history of mantle r adiation for Hodgkins Disease. ACR Practice Guidelines 2008. TECHNICAL DOCUMENTATION: FINDING NUMBER: (1) ASSESSMENT: (1) JOB ID: [id number] [employer]- All Rights Reserved Reading location - IP/workstation name: [email or web address]
--- NOTE | 2019-05-04 17:22 | ER Document Report ---
ED General - General Chief Complaint: Abscess Stated Complaint: POSSIBLE ABSCESS Time Seen by Provider: 05/04/19 16:00 Primary Care Provider: MODE PLASCENCIA MD [Primary Care Provider] - Follow up as needed Mode of Arrival: Ambulatory Information source: Patient Notes: 39-year-old female with hypertension presents with complaint of right breast pain that started 1 week prior to arrival. Patient describes the pain as throbbing, aching and worsening. Patient has had prior similar symptoms and states approximately 2 years ago she required incision and drainage by a surgeon. She denies any history of MRSA, discharge from the nipple, fever, chills, nausea, vomiting. TRAVEL OUTSIDE OF THE [place] IN LAST 30 DAYS: No - HPI Onset: Last week Onset/Duration: Gradual, Persistent Quality of pain: Achy, Throbbing Severity: Moderate Pain Level: 2 Associated symptoms: denies: Chest pain, Fever, Nausea, Vomiting, Shortness of breath Exacerbated by: Denies Relieved by: Denies Similar symptoms previously: Yes Recently seen / treated by doctor: No - Related Data Allergies/Adverse Reactions: No Known Allergies Allergy (Verified 05/04/19 14:36) Past Medical History - General Information source: Patient - Social History Smoking Status: Current Some Day Smoker Cigarette use (# per day): Yes - 2-3 Chew tobacco use (# tins/day): No Smoking Education Provided: Yes - Smoking cessation counseling was provided for 4 minutes at the bedside Frequency of alcohol use: Occasional Drug Abuse: None Lives with: Family Family History: Arthritis, DM, Hypertension, Other - CHF Patient has suicidal ideation: No Patient has homicidal ideation: No - Past Medical History Cardiac Medical History: Reports: Hx Hypertension Pulmonary Medical History: Neurological Medical History: Renal/ Medical History: Denies: Hx Peritoneal Dialysis GI Medical History: Musculoskeletal Medical History: Skin Medical History: Reports Hx Cellulitis, Reports Hx MRSA Infectious Medical History: Reports: Hx MRSA Past Surgical History: Reports: Hx Section, Hx Oral Surgery - [place] - Immunizations Hx Diphtheria, Pertussis, Tetanus Vaccination: Yes Review of Systems - Review of Systems Notes: REVIEW OF SYSTEMS: CONSTITUTIONAL : Denies fever, chills, or sweats. Denies recent illness. Denies weight loss, recent hospitalizations. EENT: Denies visual changes, eye pain. Denies sore throat, oral lesions, difficulty swallowing. CARDIOVASCULAR: Denies chest pain. Denies palpitations. Denies lower extremity edema. RESPIRATORY: Denies cough. Denies shortness of breath, wheezing. GASTROINTESTINAL: Denies abdominal pain or distention. Denies nausea, vomiting, or diarrhea. Denies blood in vomitus, stools, or per rectum. Denies black, tarry stools. Denies constipation. GENITOURINARY: Denies difficulty urinating, painful urination, frequency, blood in urine, or vaginal discharge. MUSCULOSKELETAL: Denies back or neck pain or stiffness. Denies joint pain or swelling. SKIN: + Right breast erythema HEMATOLOGIC : Denies easy bruising or bleeding. LYMPHATIC: Denies swollen glands. NEUROLOGICAL: Denies confusion or altered mental status. Denies loss of consciousness. Denies dizziness or lightheadedness. Denies headache. Denies weakness or paralysis. Denies problems difficulty with ambulation, slurred speech. Denies sensory loss, numbness, or tingling. Denies seizures. PSYCHIATRIC: Denies anxiety or stress. Denies depression, suicidal ideation, or homicidal ideation. Denies visual or auditory hallucinations. Physical Exam - Vital signs Vitals: Temp Pulse Resp BP Pulse Ox 98.7 F 93 16 160/91 H 100 05/04/19 14:48 05/04/19 14:48 05/04/19 14:48 05/04/19 14:48 05/04/19 14:48 - Notes Notes: PHYSICAL EXAMINATION: GENERAL: Well-appearing, well-nourished and in no acute distress. HEAD: Atraumatic, normocephalic. EYES: Pupils equal round and reactive to light, extraocular movements intact, conjunctiva are normal. ENT: Nares patent, oropharynx clear without exudates. Moist mucous membranes. NECK: Normal range of motion, supple without lymphadenopathy LUNGS: Breath sounds clear to auscultation bilaterally and equal. No wheezes rales or rhonchi. Right breast-erythema at the 11 o'clock position with associated induration, distortion of right nipple. Tender with palpation. HEART: Regular rate and rhythm without murmurs ABDOMEN: Soft, nontender, nondistended abdomen. No guarding, no rebound. No masses appreciated. Female : deferred Musculoskeletal: Normal range of motion, no pitting or edema. No cyanosis. NEUROLOGICAL: Cranial nerves grossly intact. Normal speech, normal gait. Normal sensory, motor exams PSYCH: Normal mood, normal affect. SKIN: Warm, Dry, normal turgor, no rashes or lesions noted. Course - Re-evaluation Re-evalutation: 05/04/19 17:44 Laboratory 05/04/19 05/04/19 05/04/19 16:23 16:23 16:23 WBC 6.0 RBC 3.87 Hgb 11.1 L Hct 33.1 L MCV 86 MCH 28.6 MCHC 33.4 RDW 15.8 H Plt Count 351 Lymph % (Auto) 32.5 [place] % (Auto) 4.7 Eos % (Auto) 2.0 Baso % (Auto) 0.5 Absolute Neuts (auto) 3.6 Absolute Lymphs (auto) 1.9 Absolute Monos (auto) 0.3 Absolute Eos (auto) 0.1 Absolute Basos (auto) 0.0 Seg Neutrophils % 60.3 Sodium 139.3 Potassium 3.5 L Chloride 102 Carbon Dioxide 29 Anion Gap 8 BUN 9 Creatinine 0.79 Est GFR ( Amer) > 60 Est GFR (MDRD) Non-Af > 60 Glucose 90 Calcium 9.4 Serum HCG, Qual NEGATIVE Breast Ultrasound 05/04/19 16:05 IMPRESSION: Large solid retroareolar mass. These either represents a large cyst or potentially an abscess. Temp Pulse Resp BP Pulse Ox 98.7 F 93 16 160/91 H 100 05/04/19 14:48 05/04/19 14:48 05/04/19 14:48 05/04/19 14:48 05/04/19 14:48 ED Course History: Right breast pain 1 week. History of breast abscess. Patient evaluated. Vital signs were reviewed. Patient is afebrile, mild hypert ension. Previous medical records and nursing notes reviewed. Patient does not appear toxic or dehydrated they are in no acuted distress Exam Findings: Right breast erythema, induration, tenderness. Patient Interventions/Monitor: IV fluids, morphine, Zofran, antibiotics. N.p.o. Disposition: Admit to surgery Consults: Dr. March - Vital Signs Vital signs: Temp Pulse Resp BP Pulse Ox 98.7 F 93 16 160/91 H 100 05/04/19 14:48 05/04/19 14:48 05/04/19 14:48 05/04/19 14:48 05/04/19 14:48 - Laboratory Result Diagrams: 05/04/19 16:23 05/04/19 16:23 Laboratory results interpreted by me: 05/04/19 05/04/19 16:23 16:23 Hgb 11.1 L Hct 33.1 L RDW 15.8 H Potassium 3.5 L - Diagnostic Test Radiology reviewed: Image reviewed, Reports reviewed Discharge - Discharge Clinical Impression: Abscess of right breast Condition: Good Disposition: ADMITTED INPATIENT Admitting Provider: Surgicalist Unit Admitted: Surgical Floor Referrals: MODE PLASCENCIA MD [Primary Care Provider] - Follow up as needed
[2019-05-04] MEDS ORDERED: MORPHINE SULFATE 10 MG/ML INJ IV ONE (17:45)
[2019-05-04] MEDS ORDERED: ONDANSETRON HCL INJ/PF 4 MG/2 ML SDV IV ONE (17:45)
[2019-05-04 18:15] LABS: INTERNATIONAL RATION (INR) 1.08
[2019-05-04] MEDS ORDERED: RINGERS SOLUTION,LACTATED 1,000 ML IV PRN (18:15)
[2019-05-04 18:16] LABS: PARTIAL THROMBOPLASTIN TIME 30.5 SEC (23.5-35.8)
--- NOTE | 2019-05-04 18:22 | PDOC H&P ---
History of Present Illness Admission Date/PCP: MODE PLASCENCIA MD Patient complains of: Right breast pain History of Present Illness: BRUNA ROLDAN is a 39 year old female Presents the emergency department via ground rescue complaining of a several day history of worsening right breast pain, swelling, redness. Symptoms are similar to those of 2 and half years ago when she developed a right breast abscess. This was drained operatively by Dr. Jeronimo. Patient is a heavy smoker. She is seen in the emergency department today where she is found to have a low-grade temperature, and ultrasonographic findings consistent with a 5 cm abscess. Surgery was consulted and she was advised admission. Patient ate solid food in the emergency department lobby approximately 2 hours prior to this consultation Past Medical History Past Medical History: Pretension, smoking abuse Cardiac Medical History: Reports: Hypertension Pulmonary Medical History: Neurological Medical History: GI Medical History: Musculoskeltal Medical History: Hematology: Infectious Medical History: Reports: Methicillin-Resistant Staph Aureus Past Surgical History Past Surgical History: section x3; I&D of right breast abscess 2017 Past Surgical History: Reports: Section Social History Information Source: Patient Lives with: Family Smoking Status: Current Some Day Smoker Hx Recreational Drug Use: No Drugs: None Family History Family History: None, Arthritis, DM, Hypertension, Other - CHF Parental Family History Reviewed: Yes Children Family History Reviewed: Yes Sibling(s) Family History Reviewed.: Yes Medication/Allergy Home Medications: Triamterene/Hydrochlorothiazid [Triamterene-Hctz 37.5-25 mg Tb] 1 each PO QAM 10/15/16 Triamterene/Hydrochlorothiazid [Triamterene-Hctz 37.5-25 mg Tb] 1 each PO DAILY #10 tablet 05/10/18 Allergies/Adverse Reactions: No Known Allergies Allergy (Verified 05/04/19 14:36) Review of Systems Eyes: ABSENT: visual disturbances Ears: ABSENT: hearing changes Breasts: PRESENT: as per HPI Gastrointestinal: ABSENT: abdominal pain, constipation, diarrhea, hematemesis, hematochezia, nausea, vomiting Genitourinary: ABSENT: dysuria, hematuria Musculoskeletal: ABSENT: joint swelling Integumentary: ABSENT: rash, wounds Neurological: ABSENT: abnormal gait, abnormal speech, confusion, dizziness, focal weakness, syncope Physical Exam Vital Signs: Temp Pulse Resp BP Pulse Ox 98.7 F 93 16 160/91 H 100 05/04/19 14:48 05/04/19 14:48 05/04/19 14:48 05/04/19 14:48 05/04/19 14:48 Intake & Output 05/03/19 05/04/19 05/05/19 06:59 06:59 06:59 Weight 77.9 kg General appearance: PRESENT: no acute distress Head exam: PRESENT: normocephalic Eye exam: PRESENT: EOMI Mouth exam: PRESENT: dry mucosa Neck exam: PRESENT: full ROM Respiratory exam: PRESENT: clear to auscultation waldemar Cardiovascular exam: PRESENT: diastolic murmur, RRR GI/Abdominal exam: PRESENT: soft Rectal exam: PRESENT: deferred Extremities exam: PRESENT: full ROM Musculoskeletal exam: PRESENT: full ROM Neurological exam: PRESENT: awake, oriented to person, oriented to time, oriented to situation Psychiatric exam: PRESENT: appropriate affect Skin exam: PRESENT: other - Breast examined supine upright position. There is a large swelling to the upper aspect of the right breast, superior aspect, periare olar with puckering of the areola and nipple, marked tenderness and erythema. Results Laboratory Results: 05/04/19 16:23 05/04/19 16:23 05/04/19 05/04/19 05/04/19 16:23 16:23 16:23 WBC 6.0 RBC 3.87 Hgb 11.1 L Hct 33.1 L MCV 86 MCH 28.6 MCHC 33.4 RDW 15.8 H Plt Count 351 Seg Neutrophils % 60.3 Sodium 139.3 Potassium 3.5 L Chloride 102 Carbon Dioxide 29 Anion Gap 8 BUN 9 Creatinine 0.79 Est GFR ( Amer) > 60 Glucose 90 Calcium 9.4 Serum HCG, Qual NEGATIVE Impressions: Breast Ultrasound 05/04/19 16:05 IMPRESSION: Large solid retroareolar mass. These either represents a large cyst or potentially an abscess. Assessment & Plan - Diagnosis (1) Abscess of right breast Is this a current diagnosis for this admission?: Yes Plan: Impression: Acute right breast abscess, recurrent, likely mammary duct associated inflammatory disease with abscess in 39-year-old female smoker Recommendations: 1. Will admit to surgical service, keep n.p.o. after midnight, IV fluids and intravenous antibiotics. 2. Take patient to the operating room in the morning for incision drainage and packing by Dr. Coulter, general anesthesia, likely discharge home later tomorrow afternoon. Procedure is not being performed this evening because the patient ate solid food 2 hours prior to this encounter. (2) Smoker Is this a current diagnosis for this admission?: Yes (3) Hypertension Is this a current diagnosis for this admission?: Yes - Time Time Spent: 30 to 50 Minutes Critical Time spent with patient: Less than 15 minutes Medications reviewed and adjusted accordingly: Yes Anticipated discharge: Home - Inpatient Certification Based on my medical assessment, after consideration of the patient's comorbidities, presenting symptoms, or acuity I expect that the services needed warrant INPATIENT care.: Yes I certify that my determination is in accordance with my understanding of Medicare's requirements for reasonable and necessary INPATIENT services [42 CFR 412.3e].: Yes Medical Necessity: Need For IV Fluids, Need for Pain Control, Need for IV Antibiotics, Need for Surgery
[2019-05-04] MEDS ORDERED: CEFAZOLIN 1 GM/D5W RTU 1 GM/50 ML RTUPB IV ONE (19:45)
[2019-05-04] MEDS ORDERED: LABETALOL HCL INJ 20 MG/4 ML DISP.SYRIN IV ONE ×2 (20:45→21:14)
[2019-05-04] MEDS: ACETAMINOPHEN INJ/PF 1000 MG/100 ML SDV IV SCH (22:01)
[2019-05-04] MEDS ORDERED: DEXTROSE 40% GEL 15 GM TUBE PO PRN ×2 (22:52)
[2019-05-04] MEDS ORDERED: GLUCAGON,HUMAN RECOMB 1 MG INJ SUBCUT PRN (22:52)
[2019-05-04] MEDS ORDERED: DEXTROSE 50%-WATER 25 GM/50 ML DISP.SYRIN IV PRN ×2 (22:52)
[2019-05-05] MEDS: ACETAMINOPHEN INJ/PF 1000 MG/100 ML SDV IV SCH ×4 (02:10→21:50)
[2019-05-05] MEDS: CEFAZOLIN 1 GM/D5W RTU 1 GM/50 ML RTUPB IV SCH ×3 (02:10→17:10)
[2019-05-05 06:37] LABS: APPEARANCE,URINE CLOUDY; BILIRUBIN,URINE NEGATIVE (NEGATIVE); COLOR,URINE DARK YELLOW; GLUCOSE, URINE NEGATIVE (NEGATIVE); KETONES,URINE NEGATIVE (NEGATIVE); LEUKOCYTE ESTERASE,URINE NEGATIVE (NEGATIVE); NITRITE,URINE NEGATIVE (NEGATIVE); PROTEIN,URINE 30 mg/dL (NEGATIVE); URINE SPECIFIC GRAVITY 1.043
[2019-05-05] MEDS ORDERED: KETOROLAC TROMETHAMINE 60 MG/2 ML SDV ONE (07:28)
[2019-05-05] MEDS ORDERED: FENTANYL CITRATE INJ/PF 100 MCG/2 ML AMPUL ONE (07:28)
[2019-05-05] MEDS ORDERED: DEXAMETHASONE SOD PHOSPHATE INJ 4 MG/1 ML VIAL ONE (07:29)
[2019-05-05] MEDS ORDERED: ONDANSETRON HCL INJ/PF 4 MG/2 ML SDV ONE (07:29)
[2019-05-05] MEDS ORDERED: MIDAZOLAM 2 MG/2 ML INJ ONE (07:29)
[2019-05-05] MEDS ORDERED: PROPOFOL INJ 200 MG/20 ML VIAL IV ONE (07:29)
[2019-05-05] MEDS ORDERED: LIDOCAINE 0.5% INJ-PF (5 MG/ML) 50 ML SDV ONE (07:30)
[2019-05-05] MEDS ORDERED: LIDOCAINE 1% INJ-PF (10 MG/ML) 30 ML SDV ONE (08:02)
[2019-05-05] MEDS ORDERED: BUPIVACAINE HCL 0.5%-EPI 1:200000 INJ/PF 30 ML VIAL ONE (08:02)
[2019-05-05] MEDS ORDERED: BACITRACIN INJ 50,000 UNIT VIAL ONE (08:02)
[2019-05-05] MEDS ORDERED: BACITRACIN ZINC OINTMENT 15 GM ONE (08:29)
[2019-05-05] MEDS ORDERED: MORPHINE SULFATE 10 MG/ML INJ IV PRN (08:38)
[2019-05-05] MEDS ORDERED: DIPHENHYDRAMINE HCL 50 MG/ML VIAL IV PRN (08:38)
[2019-05-05] MEDS ORDERED: MEPERIDINE HCL/PF INJ 25 MG/1 ML DISP.SYRIN IV PRN (08:38)
[2019-05-05] MEDS ORDERED: FENTANYL CITRATE INJ/PF 100 MCG/2 ML AMPUL IV PRN ×3 (08:38)
[2019-05-05] MEDS ORDERED: ONDANSETRON HCL INJ/PF 4 MG/2 ML SDV IV PRN (08:38)
[2019-05-05] MEDS ORDERED: OXYCODONE-ACETAMINOPHEN 5-325 MG TABLET PO PRN ×2 (08:38)
[2019-05-05] MEDS ORDERED: PROMETHAZINE HCL INJ 25 MG/1 ML VIAL IV PRN ×2 (08:38)
--- NOTE | 2019-05-05 09:13 | Operative Report ---
Operative Report DATE OF SURGERY: 05/05/19 PREOPERATIVE DIAGNOSIS: Right breast abscess, recurrent POSTOPERATIVE DIAGNOSIS: Same OPERATION: Incision and drainage of the recurrent right breast abscess SURGEON: BALJINDER ADAMS ANESTHESIA: Local - 30 mL's of 1% lidocaine with epinephrine and 30 mL's of 0.5% Marcaine with epinephrine TISSUE REMOVED OR ALTERED: Culture from right breast abscess COMPLICATIONS: None ESTIMATED BLOOD LOSS: Minimal less than 5 mL's INTRAOPERATIVE FINDINGS: Phlegmonous area located at 12:00 in the retroareolar area of the right breast PROCEDURE: The procedure was done in the operating room, the patient was placed in supine position, IV sedation provided by the anesthesiologist, the right breast was prepped and draped in usual fashion. A surgical marker was used to tk the proposed line of incision located in the areolar to skin edge at about 12:00 and extending for about 2 inches. #15 blade was used to make a curvilinear incision following the marking and the subcutaneous tissue was entered. The abscess cavity was entered with a hemostat as well and the subcutaneous fat which was divided along the surgical incision using a Bovie. A finger was inserted inside the cavity which was inspected by palpation. A hemostat was inserted through the incision in the retroareolar area and a second abscess cavity was identified and opened with the instrument. A finger was inserted in the retroareolar abscess cavity, the 2 cavities were connected so to make a single cavity. This was irrigated with about 200 mL of normal saline. Local bleeders were cauterized. 1/4 inch Hannah drain was inserted through the main incision and a side counterincision made with a #15 blade and the Hannah drain was tied to itself with fascial sutures. Bacitracin ointment was placed inside the abscess cavity followed by half-inch packing strip, 4 x 4's, ABDs, and surgical tape. The patient tolerated procedure well and was transferred to the stretcher and to the recovery room in satisfactory conditions.
[2019-05-05] MEDS: BACITRACIN ZINC OINTMENT 15 GM TP SCH (10:05)
[2019-05-05] MEDS: DOCUSATE SODIUM 100 MG CAPSULE PO SCH ×2 (10:06→17:45)
[2019-05-05] MEDS: CETIRIZINE 10 MG TABLET PO SCH (14:36)
[2019-05-05] MEDS: METOPROLOL TARTRATE 25 MG TABLET PO SCH ×2 (14:56→21:51)
[2019-05-06] MEDS: ACETAMINOPHEN INJ/PF 1000 MG/100 ML SDV IV SCH ×2 (02:21→09:50)
[2019-05-06] MEDS: CEFAZOLIN 1 GM/D5W RTU 1 GM/50 ML RTUPB IV SCH ×3 (02:24→18:06)
[2019-05-06] MEDS: DOCUSATE SODIUM 100 MG CAPSULE PO SCH ×2 (09:50→18:03)
[2019-05-06] MEDS: CETIRIZINE 10 MG TABLET PO SCH (09:50)
[2019-05-06] MEDS: METOPROLOL TARTRATE 25 MG TABLET PO SCH ×2 (09:51→21:53)
[2019-05-06] MEDS: ENOXAPARIN SODIUM INJ 40 MG/0.4 ML DISP.SYRIN SUBCUT SCH (10:09)
[2019-05-06] MEDS: BACITRACIN ZINC OINTMENT 15 GM TP SCH (11:00)
--- NOTE | 2019-05-06 12:11 | PDOC PROGRESS REPORT ---
Subjective Progress Note for:: 05/06/19 Subjective:: Patient is comfortable Reason For Visit: RIGHT BREAST ABSCESS Physical Exam Vital Signs: Temp Pulse Resp BP Pulse Ox 98.5 F 59 L 14 134/86 H 100 05/06/19 11:02 05/06/19 11:02 05/06/19 11:02 05/06/19 11:02 05/06/19 11:02 Intake & Output 05/05/19 05/06/19 05/07/19 06:59 06:59 06:59 Intake Total 340 1950 Output Total 1465 Balance 340 485 Weight 77.9 kg 77.9 kg General appearance: PRESENT: no acute distress Skin exam: PRESENT: other - Right breast: Surgical wound clean, granulating, minimal drainage, no odor, minimal tenderness, no erythema Results Laboratory Results: 05/04/19 16:23 05/04/19 16:23 Impressions: Breast Ultrasound 05/04/19 16:05 IMPRESSION: Large solid retroareolar mass. These either represents a large cyst or potentially an abscess. Assessment & Plan - Diagnosis (1) Abscess of right breast Is this a current diagnosis for this admission?: Yes (2) Hypertension Qualifiers: Hypertension type: essential hypertension Qualified Code(s): I10 - Essential (primary) hypertension Is this a current diagnosis for this admission?: Yes - Plan Summary Plan Summary: Assessment: Postoperative day #1 following incision and drainage of right breast abscess Cultures pending Physical exam shows a well-healing surgical scar, diffuse edema of the breast, no erythema, drainage, or odor appreciated The patient has developed hypertension which has been treated with metoprolol 25 mg p.o. twice a day, with improvement of her blood pressure Plan: Hep-Lock IV fluids Continue IV antibiotics until cultures are back Stop IV pain medication start on oral Tylenol and Toradol. Daily dressing changes to be done by the nurses.
[2019-05-06] MEDS ORDERED: KETOROLAC TROMETHAMINE 10 MG TABLET PO PRN (12:13)
[2019-05-07] MEDS: CEFAZOLIN 1 GM/D5W RTU 1 GM/50 ML RTUPB IV SCH (02:35)
[2019-05-07] MEDS ORDERED: SULFAMETHOXAZOLE/TRIMETHOPRIM 800-160 MG TABLET PO SCH (10:00)
[2019-05-07] MEDS: DOCUSATE SODIUM 100 MG CAPSULE PO SCH (10:00)
[2019-05-07] MEDS: CETIRIZINE 10 MG TABLET PO SCH (10:00)
[2019-05-07] MEDS: ENOXAPARIN SODIUM INJ 40 MG/0.4 ML DISP.SYRIN SUBCUT SCH (10:00)
[2019-05-07] MEDS: METOPROLOL TARTRATE 25 MG TABLET PO SCH (10:00)
--- NOTE | 2019-05-07 10:00 | PDOC DISCHARGE SUMMARY ---
General - Admit/Disc Date/PCP Admission Date/Primary Care Provider: 05/04/19 18:18 MODE PLASCENCIA MD Discharge Date: 05/07/19 - Discharge Diagnosis (1) Abscess of right breast Is this a current diagnosis for this admission?: Yes - Additional Information Resuscitation Status: Full Code Discharge Diet: As Tolerated Discharge Activity: Activity As Tolerated Home Medications: No Home Medications 05/06/19 History of Present Illness History of Present Illness: BRUNA ROLDAN is a 39 year old female Hospital Course Hospital Course: This a 39-year-old female who was admitted to hospital for breast abscess. She was taken to the operating room, where incision and drainage was performed. The patient improved significantly. She was continued on antibiotics. Her cultures are still pending, however she is feeling much better. Her pain is controlled, and she is afebrile. At this time, it is felt that she is fit for discharge. She will be discharged on oral antibiotics. She should continue with damp to dry packing/dressing changes daily and as needed. Physical Exam Vital Signs: Temp Pulse Resp BP Pulse Ox 98.5 F 64 18 145/81 H 100 05/07/19 07:47 05/07/19 07:47 05/07/19 07:47 05/07/19 07:47 05/07/19 07:47 Intake & Output 05/06/19 05/07/19 05/08/19 06:59 06:59 06:59 Intake Total 1950 500 Output Total 1465 Balance 485 500 Weight 77.9 kg 79.1 kg Results Laboratory Results: 05/04/19 16:23 05/04/19 16:23 Impressions: Breast Ultrasound 05/04/19 16:05 IMPRESSION: Large solid retroareolar mass. These either represents a large cyst or potentially an abscess. Qualifiers - * PATIENT BEING DISCHARGED WITH ANY OF THE FOLLOWING DIAGNOSIS: No Acute Heart Failure - Is this a Heart Failure Patient?: No Plan Discharge Plan: Discharge home. Diet as tolerated. Activity: As tolerated. Bactrim DS 2 tabs p.o. twice daily. [place] 5/325 mg p.o. every 6 hours as needed for pain. Follow-up with [facility] in 1 week. Okay to shower. Damp to dry dressing changes with packing daily and as needed. Time Spent: Less than 30 Minutes
[2019-05-07] MEDS: BACITRACIN ZINC OINTMENT 15 GM TP SCH (10:01)
[2019-05-07 10:38] VITALS: BP 128/66
== END 2019-05-07 15:30 | disposition home or self-care (01) | DRG 585 ==
LOC: ER 14:35 → EH 18:18 → OBSVTOIN 18:18 → EDLOC 18:18 → 2N 19:55
PROVIDERS: ADMIT Surgery; ATTEND Surgery
PROC: 0H9T0ZZ Drainage of Right Breast, Open Approach (ICD-10-PCS; principal; 2019-05-05 08:00)
DX: N61.1 Abscess of the breast and nipple (principal); I10 Essential (primary) hypertension; F17.200 Nicotine dependence, unspecified, uncomplicated; Z86.14 Personal history of Methicillin resistant Staphylococcus aureus infection; Z83.3 Family history of diabetes mellitus; Z82.49 Family history of ischemic heart disease and other diseases of the circulatory system
CPT/HCPCS: 36415; 76642; 80048; 81001; 81025; 84702; 84703; 85025; 85610; 85730; 87070; 87075; 87205; 96374; 96375; 99284; 99406; J0131; J0690; J1100; J1885; J2250; J2270; J2405; J2704; J3010; J3490; J7120

== ENCOUNTER → 2019-10-10 | Outpatient (CLI) | payer MEDICAID ==
--- NOTE | 2019-10-10 09:51 | WOMENS IMAGING REPORT ---
EXAM DESCRIPTION: U/S BREAST UNILATERAL, COMPL COMPLETED DATE/TIME: 10/10/2019 7:39 am REASON FOR STUDY: N63.20 UNSPECIFIED LUMP IN THE LEFT BREAST, UNSPECIFIED QUADRANT N63.20 UNSPECIFI ED LUMP IN THE LEFT BREAST, UNSPECIFIED QUAD COMPARISON: Prior breast ultrasound 05/04/2019, 08/06/2017, 07/10/2017 Bilateral mammograms 07/10/2017 TECHNIQUE: Real-time and static grayscale imaging performed of the entire left breast. Selected colo r Doppler images recorded. LIMITATIONS: None. FINDINGS: Ultrasound of the entire left breast was performed. The left retroareolar region is markedly abnormal. There is an ill-defined hypoechoic phlegmon with internal color flow in the retroareolar areolar region medially, just deep to the skin surface measur ing about 5 x 2 cm in size. There is internal color flow. This likely represents granulation tissue along a partially treated left breast abscess. Patient is currently on antibiotics. Remainder of the left breast is otherwise unremarkable. IMPRESSION: Abnormal skin thickening with hypoechoic irregular phlegmon deep to the left nipple medi ally at the 9 o'clock position. This most likely represents a partially treated breast abscess. Pat ient is currently on antibiotics. BIRAD: 2 Benign findings. RECOMMENDATION: RECOMMENDED FOLLOW-UP: Clinical follow-up for breast abscess. Consider follow-up [facility] breast surgeon. When the patient's acute clinical condition resolves, recommend bilateral two-view screening mammogra m. Patient's most recent prior mammograms were in July 2017. COMMENT: The [employer] (ACR) has developed recommendations for screening MRI of the breasts in certain patient populations, to be used in conjunction with mammography. Breast MRI s urveillance may be appropriate for women with more than 20% lifetime risk of developing breast cancer as determined by genetic testing, significant family history of the disease, or history of mantle r adiation for Hodgkins Disease. ACR Practice Guidelines 2008. TECHNICAL DOCUMENTATION: JOB ID: [id number] [employer]- All Rights Reserved Reading location - IP/workstation name: [email or web address]
== END ==
LOC: WI 06:45
PROVIDERS: ATTEND Nurse Practitioner Family
DX: N61.1 Abscess of the breast and nipple (principal)
CPT/HCPCS: 76641

== ENCOUNTER → 2019-10-29 | Outpatient (CLI) | payer MEDICAID ==
--- NOTE | 2019-10-29 17:52 | RADIOLOGY REPORT (SQ) ---
EXAM DESCRIPTION: CERV SP 4 OR 5 VIEWS COMPLETED DATE/TIME: 10/29/2019 5:38 pm REASON FOR STUDY: M54.2 CERVICALGIA I10 ESSENTIAL (PRIMARY) HYPERTENSION M54.2 CERVICALGIA COMPARISON: None. NUMBER OF VIEWS: Five views. TECHNIQUE: AP, lateral, obliques and odontoid radiographic images acquired of the cervical spine. LIMITATIONS: None. FINDINGS: MINERALIZATION: Normal. ALIGNMENT: Anatomic. VERTEBRAE: Vertebral bodies of normal height. DISCS: Discs are normal in height. Very small anterior osteophytes at C5 and C6. FORAMINA: No osteophytes or foraminal narrowing. LATERAL AND POSTERIOR ELEMENTS: Facets, lateral masses and spinous processes without significant find ings. HARDWARE: None in the spine. SOFT TISSUES: No masses or calcifications. Lung apices clear. OTHER: No other significant finding. IMPRESSION: NO SIGNIFICANT RADIOGRAPHIC FINDING IN THE CERVICAL SPINE. TECHNICAL DOCUMENTATION: JOB ID: [id number] 2010 [employer]- All Rights Reserved Reading location - IP/workstation name: [email or web address]
--- NOTE | 2019-10-29 17:53 | RADIOLOGY REPORT (SQ) ---
EXAM DESCRIPTION: T SPINE AP/LAT COMPLETED DATE/TIME: 10/29/2019 5:38 pm REASON FOR STUDY: I10 ESSENTIAL (PRIMARY) HYPERTENSION I10 ESSENTIAL (PRIMARY) HYPERTENSION M54.2 CERVICALGIA COMPARISON: None. NUMBER OF VIEWS: Two views. TECHNIQUE: AP and lateral radiographic images acquired of the thoracic spine. LIMITATIONS: None. FINDINGS: MINERALIZATION: Normal. ALIGNMENT: Mild scoliosis with concavity toward the left. Apexes at T9-T10. This is approximately 8 . VERTEBRAE: No fracture or bone lesion. Maintained height, normal segmentation. DISCS: No significant loss of height or significant narrowing. No large osteophytes. HARDWARE: None in the spine. MEDIASTINUM AND SOFT TISSUES: Normal heart size and aortic contour. No soft tissue abnormality. VISUALIZED LUNG [place]: Clear. OTHER: No other significant finding. IMPRESSION: Mild scoliosis as described. No other significant findings. TECHNICAL DOCUMENTATION: JOB ID: [id number] 2010 [employer]- All Rights Reserved Reading location - IP/workstation name: [email or web address]
== END ==
LOC: RAD 16:57
PROVIDERS: ATTEND Nurse Practitioner Family
DX: M54.2 Cervicalgia (principal); I10 Essential (primary) hypertension; M41.84 Other forms of scoliosis, thoracic region
CPT/HCPCS: 72050; 72070